=== PATIENT | male | born 1940 | race Caucasian/White ===

== ENCOUNTER → 2017-10-01 | Outpatient (CLI) | payer OTHER ==
[~2017-10-01] MED LIST: AMOCLA875; ASPI81CH; ATEN25 PO; ATOR10 PO; CARV6.25 PO; CYCL10; DARB200I SC; DOXA4; DOXA4 PO; DUTA.5 PO; EZET10 PO; FEBU40TA PO; LEVO750; OMEPRAZOLE MAGN20 MG; PROBIOTIC1 EAC1 PO; SERT100 PO; SEVEC800 PO; Tylenol325 MG PO
== END ==
LOC: LAB 10:53 → LAB SHORT 10:53
DX: M10.9 Gout, unspecified (principal); N18.6 End stage renal disease
CPT/HCPCS: 84550

== ENCOUNTER 2018-07-07 11:55 | Day surgery (SDC) | payer OTHER ==
[~2018-07-07] VITALS: Ht 180.3 cm; Wt 70.0 kg
[~2018-07-07 11:55] MED LIST changes: -ASPI81CH; +ASPI81CH PO; +Acetaminophen325 M1 PO; +DUTA.5; +DUTASTERIDE0.5 MG PO; +ERGO400 PO; +GABA100 PO; +MELA3 PO; +MELATONIN10 M2 PO; +ONDA4ODT MM; +OXYC5 PO; +Prilosec Otc20 MG; +[UNRECOGNIZED DRUG - CODE] PO
--- NOTE | 2018-07-07 16:45 | NUR ---
Patient gave Ja Hernandez permission to particip[ate in care on Jul 07 2018.
--- NOTE | 2018-07-07 18:34 | NUR ---
RECIEVED PT INTO ICU-3 VIA STRETCHER THEN STOOD TO TRANSFERT TO BED. PT IS A/O. VS NOTED AND BP IS SL ELEVATED CURRENTLY. HANDS AND FEET ARE COOL. L FOREARM IS NOTED TO BE SL SWOLLEN FOR LAST FEW HOURS PER RN'S AND "X" MCCAIN THE SITE THAT THE MANAGER GENERATION RN'S INDICATED A HEMATOMA HAD BEEN EXPRESSED FROM. NO HEMATOMA ONLY A SMALL BRUISE REMAINS. PT IS VERY AWARE OF ARM CONDITION. HAS VOIDED AND REQUESTING PO INTAKE. PT VERY PLEASANT AND CHEERFUL. 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 ONLY LIGHT PRESSURE IS REQUESTED PER DR RIVAS ON FISTULA SITES AND PT INDICATES BOTH PUNCTURE SITES ARE TENDER.
--- NOTE | 2018-07-07 20:00 | NUR ---
ASSUMED CARE OF PT. REPORT RECEIVED AT BEDSIDE. FISTULA PROCEDURAL REPAIR SITE EVALUATED AND ASSESSED WITH OFFGOING RN. SOME SWELLING AROUND FISTUAL SITE. GOOD THRILL NOTED AND GOOD DISTAL CMS CHECKS. NO INCREASE IN OOZING PER OFFGOING RN. WILL CONTINUE TO MONITOR SITE. WILL REVIEW CHART AND PLAN OF CARE FOR THIS PT.
--- NOTE | 2018-07-07 20:15 | NUR ---
ASSUMED CARE OF PT AT 1900. REPORT RECEIVED AT BEDSIDE. PT PRESENTS IN BED. ALERT AND ORIENTED. PLEASANT AND COOPERATIVE WITH CARE AND ASSESSMENT. RADIAL ACCESS SITE WITH MINIMAL HEMATOMA NEAR ACCESS SITE. NO CHANGE PER OFFGOING RN. SHADOW DRAINAGE FROM OOZE ON CHG DRESSING. NO CHANGE NOTED WELL. WILL CONTINUE TO MONIOR. WILL REVIEW CHART AND PLAN OF CARE FOR THIS PT.
--- NOTE | 2018-07-08 01:28 | NUR ---
PT CONTINUES TO BE ABLE AND REST. NO CHANGES TO ASSESSMENT OF LEFT ARM FISTULA. NO INCREASE IN SIZE. NO INCREASE IN SHADOW DRAINAGE ON CHG DRESSINGS. WILL CONTINUE TO MONITOR.
--- NOTE | 2018-07-08 07:21 | NUR ---
PT HAS BEEN ABLE TO REST THIS NIGHT. NO COMPLAINTS VOICED BY PT. FISTULA REMAINS TENDER TO PALPATION. PT STATES HE HAS HAD SAME PROCEDURE IN PAST SEVERAL YEARS BACK AND HE HAD SAME TENDERNESS THEN. PT HAS BEEN UP TO TOILET. VOIDS AND HAS SMALL BM. REPORT GIVEN TO SAM BARAKAT.
--- NOTE | 2018-07-08 07:32 | NUR ---
Recieved report from Adithya Torres. Patient was up in room independent using bathroom. He is alert and oriented and is on RA and denies any SOB even with exertion. He has new fistula sites on left arm and clear op sites dressings clear dry and intact, slight swelling. He has Dialysis at 10 and will be discharged by them. VSS. Patient denies any current needs other than wanting to get dressed. He has 20ga IV dressing intact and site WNL's.
--- NOTE | 2018-07-08 08:50 | NUR ---
Patient has RFA IV pulled intact and wrapped in coban. He got dressed independently and tolerated well. He ate 100% of breakfast. He ambulated to exit and PCT walked him to exit, and he has to make [facility] appt. at 1000.He was given written discharge orders supplied from [facility] and he returned understanding of all information.
== END 2018-07-08 08:50 | disposition home or self-care (01) ==
LOC: MHTC 11:55 → ICUE 17:40 → MHTC 07-08 08:50
DX: I77.0 Arteriovenous fistula, acquired (principal); I74.8 Embolism and thrombosis of other arteries; I35.8 Other nonrheumatic aortic valve disorders; I35.0 Nonrheumatic aortic (valve) stenosis
CPT/HCPCS: 36905; 76937; 99152; 99153; C1725; C1757; C1769; C1894; J1644; J2250; J2997; J3010; J7030; J7040; Q9967

== ENCOUNTER 2018-11-15 11:00 | Day surgery (SDC) | payer OTHER ==
[~2018-11-15] VITALS: Ht 170.2 cm; Wt 73.0 kg
[2018-11-15] MEDS ORDERED: PANT40 PO (12:16)
[2018-11-15] MEDS ORDERED: ASPI81CH PO (12:16)
[2018-11-15] MEDS ORDERED: Uloric80 MG PO (12:16)
--- NOTE | 2018-11-15 16:48 | NUR ---
Sutures removed. Entry sites covered with cloth dot [id number] hematoma noted.
[2018-11-15] MEDS ORDERED: XARELTO15 MG PO (17:06)
--- NOTE | 2018-11-15 17:36 | NUR ---
DISCHARGE PT REMAINED A&OX3 AND DENIED ANY PAIN DURING RECOVERY. PT UP TO DRESS SELF AND ABULATE TO RESTROOM WITH STEADY GAIT. IV DC'D WITH TIP IN TACT. DISCHARGE PAPERWORK GONE OVER WITH PT. PT STATED THE UNDERSTANDING OF THE DISCHARGE EDUCATION AND DENIED ANY QUESTIONS AT THIS TIME. PT WHEELED OUT BY THIS NURSE.
== END 2018-11-15 17:30 | disposition home or self-care (01) ==
LOC: MHTC 11:00
DX: I12.0 Hypertensive chronic kidney disease with stage 5 chronic kidney disease or end stage renal disease (principal); N18.6 End stage renal disease; I25.10 Atherosclerotic heart disease of native coronary artery without angina pectoris; F32.9 Major depressive disorder, single episode, unspecified; Z99.2 Dependence on renal dialysis; Z79.899 Other long term (current) drug therapy; Z79.82 Long term (current) use of aspirin
CPT/HCPCS: 99152; 99153; C1725; C1757; C1769; C1887; C1894; J1644; J2250; J3010; J7030; J7040; Q9967

== ENCOUNTER 2019-02-23 06:09 | Day surgery (SDC) | payer OTHER ==
[~2019-02-23] VITALS: Ht 170.2 cm; Wt 73.0 kg
[~2019-02-23 06:09] MED LIST changes: +ALLER-TEC D 5-1 EACH PO; +Aspirin EC81 MG PO; -DUTA.5; +PANT40 PO; +RENAL VITAMIN0.8 MG PO; +Uloric80 MG PO; +XARELTO15 MG PO
--- NOTE | 2019-02-23 10:45 | NUR ---
SUTURES REMOVED. DRESSING CDI-NO HEMATOMA NOTED.
--- NOTE | 2019-02-23 11:06 | NUR ---
SUTURES REMOVED. NO BLEEDING OR HEMOTOMA NOTED. SITES COVERED WITH CLOTH DOT BANDAGES. IV DC'D WITH CATH INTACT. PT DRESSED SELF WITH NO COMPLICATIONS. PT STATES UNDERSTANDING OF SITE CARE INSTRUCTIONS. DENIES ANY QUESTIONS AT THIS TIME. AMBULATES WITH RN UPON DISCHARGE.
== END 2019-02-23 11:45 | disposition home or self-care (01) ==
LOC: MHTC 06:09
DX: T82.868A Thrombosis due to vascular prosthetic devices, implants and grafts, initial encounter (principal); I12.0 Hypertensive chronic kidney disease with stage 5 chronic kidney disease or end stage renal disease; N18.6 End stage renal disease; I25.10 Atherosclerotic heart disease of native coronary artery without angina pectoris; Z95.2 Presence of prosthetic heart valve
CPT/HCPCS: 36905; 76937; 99152; 99153; C1725; C1757; C1769; C1887; C1894; J1644; J2250; J3010; J7030; Q9967

== ENCOUNTER 2019-03-01 14:40 | Inpatient (IN) | payer OTHER ==
[~2019-03-01] VITALS: Ht 180.3 cm; Wt 68.0 kg
[2019-03-01 16:40] LABS: BASOPHILS ABSOLUTE AUTO 0.02 K/mm3 (0.00-0.23); BASOPHILS PERCENT AUTO 0 % (0-2); EOSINOPHILS ABSOLUTE AUTO 0.09 K/mm3 (0.00-0.68); EOSINOPHILS PERCENT AUTO 1 % (0-6); Hematocrit 18.8 % (37.0-53.0); Hemoglobin 6.3 g/dL (13.5-17.5); IMMATURE GRAN ABSOLUTE AUTO 0.03 K/mm3 (0.00-0.10); IMMATURE GRAN PERCENT AUTO 0 % (0-1); LYMPHOCYTES ABSOLUTE AUTO 0.82 K/mm3 (0.84-5.20); LYMPHOCYTES PERCENT AUTO 10 % (21-46); MONOCYTES ABSOLUTE AUTO 0.51 K/mm3 (0.16-1.47); MONOCYTES PERCENT AUTO 6 % (4-13); Mean Corpuscular HGB 35.2 pg (26.0-34.0); Mean Corpuscular HGB Conc 33.5 g/dL (31.5-36.5); Mean Corpuscular Volume 105 fL (80-100); Mean Platelet Volume 10.4 fL (9.1-12.4); NEUTROPHILS PERCENT AUTO 82 % (41-73); Platelet Count 122 K/mm3 (150-400); RDW Coefficient Variation 14.2 % (11.7-14.2); RDW Standard Deviation 53.5 fL (35.1-46.3); Red Blood Cell Count 1.79 M/mm3 (4.30-5.90); White Blood Cell Count 8.07 K/mm3 (4.00-11.30)
[2019-03-01 17:22] LABS: Albumin, Blood 3.6 g/dL (3.4-5.0); Bilirubin, Total 0.6 mg/dL (0.1-1.0); Bun/Creatinine Ratio 14.4 (12.0-20.0); Calcium, Blood 9.7 mg/dL (8.5-10.1); Creatinine, Blood 10.4 mg/dL (0.60-1.20); Globulin, Blood 3.5 g/dL (2.2-4.0); Potassium, Blood 5.5 mmol/L (3.5-5.5); Total Protein, Blood 7.1 g/dL (6.4-8.2)
[2019-03-01 18:40] LABS: Prothrombin Time Results 10.6 Sec (9.7-11.5)
[2019-03-01 19:46] LABS: Magnesium, Blood 2.4 mg/dL (1.6-2.4); Phosphorus, Blood 6.7 mg/dL (2.5-4.9)
--- NOTE | 2019-03-01 22:04 | NUR ---
KEN CALLED TO GET AN UPDATE ON PT. ORDER TO GIVE BLOOD AND TO GIVE DIURETICS DURING PRBC AND AFTER PRBC. VSS. NEW POWERGLIDE PLACED R BASILIC, 20G 10CM.
--- NOTE | 2019-03-01 22:55 | NUR ---
PT TO ICU 13 FROM ED. PT ALERT AND ORIENTED. PT DENIES ABDOMINAL PT AT THIS TIME. PT REPORTS "DARK STOOL" X3 DAYS BUT NO SANDY BLOOD. PT IS ESRD HEMODIALYSIS (WED/WED) PT WHO HAS BEEN UNABLE TO HAVE DIALYSIS SINCE LAST WEDNESDAY D/T PLUGGED FISTULA. PT SCHEDULED TO HAVE TEMP PORT PLACEMENT 03/02 BUT PER PT'S PT WAS DIZZY, WEAK AND HYPOTENSIVE ALL DAY. PT TO RECEIVE 1 UNIT PRBC'S. SEE FULL ADMISSION ASSESSMENT.
--- NOTE | 2019-03-01 23:29 | NUR ---
DR. ROGERS TO SEE PT. PLAN TO PLACE TEMP PORT AND DIALYSIS WITH 1 UNIT PRBC'S TOMORROW PRIOR TO SCOPE FOR GI BLEED.
[2019-03-02 02:14] LABS: Hematocrit 20.6 % (37.0-53.0); Hemoglobin 6.9 g/dL (13.5-17.5)
[2019-03-02 03:04] LABS: Albumin, Blood 3.4 g/dL (3.4-5.0); Anion Gap 16 mmol/L (6-16); Blood Urea Nitrogen 157 mg/dL (8-24); Bun/Creatinine Ratio 14.8 (12.0-20.0); CO2, Blood 17 mmol/L (21-32); Calcium, Blood 9.2 mg/dL (8.5-10.1); Chloride, Blood 109 mmol/L (98-108); Glomerular Filtration Rate 5 (60-); Glucose, Blood 105 mg/dL (70-99); Phosphorus, Blood 7.5 mg/dL (2.5-4.9); Potassium, Blood 5.4 mmol/L (3.5-5.5); Sodium, Blood 142 mmol/L (136-145)
--- NOTE | 2019-03-02 03:17 | NUR ---
PHONE CALL TO DR ROGERS UPDATED ON PT'S H&H. RENAL PANEL ORDERED. ORDER TO INFUSE 1 UNIT PRBC, 4 MG BUMEX MIDWAY, 10 MG ZAROXOLYN MIDWAY.
--- NOTE | 2019-03-02 06:11 | NUR ---
SHIFT SUMMARY NO ACUTE CHANGES OVERNIGHT. PT RECEIVING 2/[address] TIME[address] ROGERS IN TWICE TO SEE PT WITH PLAN TO PLACE TEMP PORT THIS AM AND RESUME DIALYSIS. VSS T/O SHIFT. 55O ML CLEAR YELLOW URINARY OUTPUT. SEE PREVIOUS NOTES FROM THIS SHIFT. WILL REPORT TO DAYSHIFT NURSE.
--- NOTE | 2019-03-02 06:32 | NUR ---
DR. WISDOM CALLED REGARDING PT'S H/H. DR WISDOM TO SCOPE PT THIS AM. CALL TO DR. ROGERS TO CONFIRM THAT SCOPE IS OK TO DO THIS MORNING AND PORT PLACEMENT/DIALYSIS LATER TODAY.
--- NOTE | 2019-03-02 07:37 | NUR ---
PT TRANSPORTED TO CEILING INSTALLER RNs. BLOOD TRANSFUSION COMPLETE. POST TRANSFUSION LAB DRAWS COMPLETED. RIGHT FA IV FLUSHED, PATENT, SL. RIGHT POWERGLIDE FLUSHED, PATENT, SL, RIGHT ANKLE IV COOL, DRY. PT A&O, AWARE OR AM PROCESS FOR CATH, EGD, DIALYSIS, THESE HAVE YET TO BE FULLY COORDINATED. PT ABLE TO VOID.
[2019-03-02 07:39] LABS: BASOPHILS ABSOLUTE AUTO 0.01 K/mm3 (0.00-0.23); BASOPHILS PERCENT AUTO 0 % (0-2); EOSINOPHILS PERCENT AUTO 3 % (0-6); Hematocrit 23.3 % (37.0-53.0); Hemoglobin 7.8 g/dL (13.5-17.5); IMMATURE GRAN ABSOLUTE AUTO 0.03 K/mm3 (0.00-0.10); IMMATURE GRAN PERCENT AUTO 0 % (0-1); LYMPHOCYTES PERCENT AUTO 14 % (21-46); MONOCYTES ABSOLUTE AUTO 0.58 K/mm3 (0.16-1.47); MONOCYTES PERCENT AUTO 8 % (4-13); Mean Corpuscular HGB 32.4 pg (26.0-34.0); Mean Corpuscular HGB Conc 33.5 g/dL (31.5-36.5); Mean Platelet Volume 9.7 fL (9.1-12.4); NEUTROPHILS ABSOLUTE AUTO 5.35 K/mm3 (1.96-9.15); NEUTROPHILS PERCENT AUTO 75 % (41-73); Platelet Count 107 K/mm3 (150-400); RDW Coefficient Variation 17.8 % (11.7-14.2); RDW Standard Deviation 61.3 fL (35.1-46.3); Red Blood Cell Count 2.41 M/mm3 (4.30-5.90); White Blood Cell Count 7.17 K/mm3 (4.00-11.30)
[2019-03-02 07:42] LABS: Mean Corpuscular Volume 97 fL (80-100)
[2019-03-02 08:07] LABS: Magnesium, Blood 2.3 mg/dL (1.6-2.4)
[2019-03-02 08:39] LABS: Albumin, Blood 3.5 g/dL (3.4-5.0); Albumin/Globulin Ratio 1.1 (0.8-1.8); Bilirubin, Total 0.6 mg/dL (0.1-1.0); Calcium, Blood 9.1 mg/dL (8.5-10.1); Globulin, Blood 3.3 g/dL (2.2-4.0); Phosphorus, Blood 7.5 mg/dL (2.5-4.9); Potassium, Blood 5.5 mmol/L (3.5-5.5); Total Protein, Blood 6.8 g/dL (6.4-8.2)
[2019-03-02 08:41] LABS: Bun/Creatinine Ratio 13.9 (12.0-20.0); Creatinine, Blood 10.6 mg/dL (0.60-1.20)
--- NOTE | 2019-03-02 08:51 | NUR ---
PT TRANSPORTED BACK TO ICU VIA CATH RNs. PT DROWSY HOWEVER EASY TO ROUSE AND RESPONDS APPROPRIATELY. IJ CATH PLACED TO RIGHT SIDE, TEMP DRESSING PLACED,SLIGHT OOZING AT INSERTION SITE. PHYSICIAN AT BEDSIDE.
--- NOTE | 2019-03-02 10:06 | NUR ---
PT A&O, ENGAGED IN CONVERSATION, AWARE AND RESPONSIVE, MOVING ALL EXTREMITIES
--- NOTE | 2019-03-02 11:09 | NUR ---
PATINT IN ICU ROOM 13. ADMISSION FOR PROCEDURE STARTED.
--- NOTE | 2019-03-02 11:36 | NUR ---
03/02/19 1136 Darrin Dee Bite Block PlacedHistory, Chart, Medications and Allergies reviewed before start of procedure.LUNGS CLEAR T/O TO AUSCULTATION.MONITOR INTACT WITH CONTINUOUS PULSE OXIMETRY AND INTERMITTENT BP.O2 VIA N/C INTACT THROUGHOUT SEDATION/PROCEDURE.See Anesthesia record.
--- NOTE | 2019-03-02 12:29 | NUR ---
EGD DONE. TIMEOUT 1140, SCOPE OUT 1159, PT AWAKE 1208. PT BP HAS BEEN SOFT, BUT ACCEPTABLE, SEE VITALS. PT AROUSABLE, BUT GROGGY. O2 SATS HOLDING AT 99-100% ON RA. HOWEVER PT TO EMAIN NPO UNTIL MORE ALERT.
--- NOTE | 2019-03-02 15:06 | NUR ---
PROTONIX STOPPED, LINE FLUSHED WITH NS AND SL. HEMODIALYSIS STARTED, PT TOLERATING WELL.
--- NOTE | 2019-03-02 18:22 | NUR ---
PT INCISION SITE ABOVE R DIALYSIS CATH CONT TO OOZ. LOCAL PRESSURE HELD 20 MIN TO STABLIZE AND THEN GIOVANI AGAIN APPLIED AND IS NOT BLEEDING. PT BP SL LOW AND RE CHECKED ON R WRIST X1 AND THEN RETURNED TO L ANKLE. PT IS RESTING WELL AND HAS BEEN VERY A/O THIS DAY.
--- NOTE | 2019-03-02 20:00 | NUR ---
CARE ASSUMED REPORT RECEIVED, CARE ASSUMED FROM SAM BAIRD. PT ALERT, ORIENTED SITTING IN BED. DENIES PAIN/DISCOMFORT/NEEDS. DIALYSIS CATHETER DRESSING IN TACT. VITALS STABLE. SEE FLOWSHEET & ASSESSMENTS.
[2019-03-02 22:20] LABS: Hematocrit 24.4 % (37.0-53.0); Hemoglobin 8.5 g/dL (13.5-17.5)
--- NOTE | 2019-03-03 01:43 | NUR ---
BLOOD PRESSURE PT HYPOTENSIVE, SEE FLOWSHEET. HYPOTENSION UNRESPONSIVE TO MIDODRINE AND FLUID BOLUS. SEE ORDERS. SECOND DOSE OF MIDODRINE GIVEN PER DR. MARINA RECOMMENDATIONS. PER DR. MARINA, CONTINUE TO MONITOR AFTER ADMINISTRATION FOR A GOAL OF MAP 55. PT ASYMPTOMIC. TALKATIVE THROUGHOUT EVENING. DENIES DIZZINESS. RESPIRATIONS EVEN AND UNLABORED. 02 SATS 90S ON ROOM AIR. PT DENIES PAIN/DISCOMFORT. NO SIGNS OF BLEEDING.
--- NOTE | 2019-03-03 02:00 | NUR ---
BLOOD PRESSURE/PERSISTENT LOW BP BP CONINUES TO TREND DOWN. ATTEMPTED TO NOTIFY DR. ROGERS WITH NO ANSWER. NOTIFIED DR. GUNDERSON. NEW ORDER FOR LEVOPHED. PT CONTINUES TO AROUSE EASILY AND IS ORIENTED.
--- NOTE | 2019-03-03 02:12 | NUR ---
DR. ROGERS COMMUNICATION RECEIVED RETURN PHONE CALL FROM DR. ROGERS. UPDATED ON CHANGES TO PLAN OF CARE, DR. ROGERS AGREEABLE TO PLAN.
[2019-03-03 03:26] LABS: Hematocrit 23.5 % (37.0-53.0)
[2019-03-03 03:42] LABS: Albumin, Blood 3.1 g/dL (3.4-5.0); Anion Gap 10 mmol/L (6-16); Blood Urea Nitrogen 78 mg/dL (8-24); Bun/Creatinine Ratio 12.3 (12.0-20.0); CO2, Blood 28 mmol/L (21-32); Calcium, Blood 9.1 mg/dL (8.5-10.1); Chloride, Blood 107 mmol/L (98-108); Creatinine, Blood 6.35 mg/dL (0.60-1.20); Glomerular Filtration Rate 9 (60-); Glucose, Blood 117 mg/dL (70-99); Potassium, Blood 4.3 mmol/L (3.5-5.5); Sodium, Blood 145 mmol/L (136-145)
[2019-03-03 03:54] LABS: Phosphorus, Blood 4.1 mg/dL (2.5-4.9)
--- NOTE | 2019-03-03 05:59 | NUR ---
SUMMARY SINCE PREVIOUS NOTE, LEVOPHED TITRATED TO MAINTAIN BLOOD PRESSURE. INFUSING THROUGH POWERGLIDE. SEE FLOWSHEETS. PT CONTINUES TO AROUSE EASILY AND IS TALKATIVE WHEN STAFF IS IN THE ROOM WITH HIM. DIALYSIS CATHETER SITE ASSESSMENT UNCHANGED. PT HAS CONTINUED TO DENY PAIN. DR. ROGERS UPDATED ON MOST RECENT LABS BY [facility] RN AND NEW ORDERS PLACED. PT CALLS APPROPRIATELY FOR NEEDS.
--- NOTE | 2019-03-03 07:03 | NUR ---
REPORT TO SAM BAIRD TO ASSUME CARE. BEDSIDE ROUNDING COMPLETE.
--- NOTE | 2019-03-03 12:47 | NUR ---
REASSESSMENT: PT REMAINS INTUBATED, ON PRECEDEX, BUT STILL OPENS HIS EYES AND FOLLOWS COMMANDS. PT HAS HAD 2 LOOSE BMS THIS MORNING. HE IS HELPING TURN A LITTLE BITH WHEN HE GETS CLEANED UP. TF ARE CURRENTLY STOPPED D/T LIKELY EXTUBATION, BUT PT HAS BEEN TOLERATING THEM. LUNGS ARE COARSE T/O. MOD AMT OF SECRETIONS, THICK WHITE, BUT THINNER THAN THEY WERE EARLIER THIS WEEK. DR. BARKSDALE EVALUATED PT AND PLANS FOR EXTUBATION THIS AFTERNOON. PT IS SR, SBP IN THE 160-170S. PT RECEIVED DOSE OF LASIX THIS MORNING PER DR. BARKSDALE. PT'S IS AT THE BEDSIDE AND HAS BEEN FULLY UPDATED.
--- NOTE | 2019-03-03 14:18 | NUR ---
REASSESSMENT: PT HAS BEEN RESTING IN BED FOR MOST OF THE MORNING. HE GOT UP TO THE BR ONCE AND REQUIRED MINIMAL ASSISTANCE. LEVOPHED WAS TITRATED OFF, BUT PT'S BP HAS BEEN BORDERLINE D/T LOW DIASTOLIC. PT IS ASYMPTOMATIC. DR. SAUNDERS AWARE OF BP. PT HAD HIS ECHO THIS AM. NO DIALYSIS TODAY SO 1 UNIT PRBC GIVEN PERIPHERALLY. PT'S AT THE BEDSIDE AND HAS BEEN FULLY UPDATED.
--- NOTE | 2019-03-03 18:18 | NUR ---
PT ON LEVOPHED THIS AM. WAS TITRATED OFF WITH SOFT BPS. PT ASYMPTOMATIC. UP TO TOILET THREE TIMES TODAY WITH DARKISH BMS. ABLE TO AMBULATE WITH MINIMAL ASSISTANCE. NO DIZZINESS WITH RISING. 1 UNIT PRBCS TRANSFUSED. PT TOLERATED WELL. FULL LIQUID DIET AT BEGINNING OF SHIFT, HOWEVER DIET CHANGED TO RENAL DIET 1744. AT BEDSIDE MAJORITY OF DAY.
--- NOTE | 2019-03-03 21:25 | NUR ---
ASSUMED PT CARE FROM SAM MCKNIGHT PT SITTING UP IN BED. ALERT AND ORIENTED AND ABLE TO MAKE NEEDS KNOWN. STAND BY ASSIST TO TOILET. PT DENIES ANY ABDOMINAL PAIN OR BLOODY OR BLACK/TARRY STOOLS. FREQUENT USE OF TOILET PER REPORT. HYPERACTIVE BOWEL TONES TO ALL FOUR QUADRANTS. LEFT FOREARM FISTULA REMAINS NEGATIVE FOR BRUIT/THRILL. PERMACATH TO RIGHT UPPER CHEST HAS DRESSING THAT IS CDI; LAST DIALYSIS WAS 03/02 S/P PERMACATH PLACEMENT. POWERGLIDE TO RIGHT UPPER ARM IS PATENT, BUT SALINE LOCKED. 18G TO RIGHT ANKLE IS ALSO PATENT AND SL. PT IS NOTED TO BE 100& VENTRICULAR PACED WITH HR 60-70'S. BLOOD PRESSURE STABLE. CALL LIGHT LEFT WITHIN REACH AND PT IS ABLE TO MAKE HIS NEEDS KNOWN. APPEARS TO BE IN GOOD SPIRITS.
[2019-03-04 04:31] LABS: Albumin, Blood 3.4 g/dL (3.4-5.0); Anion Gap 9 mmol/L (6-16); Blood Urea Nitrogen 83 mg/dL (8-24); Bun/Creatinine Ratio 11.3 (12.0-20.0); CO2, Blood 26 mmol/L (21-32); Calcium, Blood 9.4 mg/dL (8.5-10.1); Chloride, Blood 107 mmol/L (98-108); Creatinine, Blood 7.36 mg/dL (0.60-1.20); Glomerular Filtration Rate 8 (60-); Glucose, Blood 101 mg/dL (70-99); Magnesium, Blood 2.1 mg/dL (1.6-2.4); Phosphorus, Blood 4.6 mg/dL (2.5-4.9); Potassium, Blood 4.5 mmol/L (3.5-5.5); Sodium, Blood 142 mmol/L (136-145)
--- NOTE | 2019-03-04 06:05 | NUR ---
END OF SHIFT SUMMARY PT HAS SLEPT MOST OF THE NIGHT. VS REMAIN STABLE WITH OCCASIONAL LOW DIASTOLIC PRESSURES; HOWEVER, PT DENIES SOB, FEELING DIZZY OR FEELING LIGHT HEADED, WELL DENIES ANY CHEST PAIN. PERMACATH TO RIGHT UPPER CHEST REMAINS WITH DRESSING IN PLACE THAT IS CDI. LUNG SOUNDS REMAIN CLEAR T/O. PT HAS BEEN 100% VENTRICULAR PACED WITH OCCASIONAL ATRIAL PACING NOTED; HR 60'S. ABDOMEN REMAINS SOFT, NON-TENDER WITH ACTIVE BTX4. DENIES ANY ABDOMINAL PAIN, WELL N/V. UP TO THE RESTROOM FREQUENTLY FOR ELIMINATION; VOIDING, AND HAVING BM'S. PT DENIES DIARRHEA, BUT CONTINUED FLUSHING TOILET BEFORE I COULD ASSESS STOOL. CALL LIGHT LEFT WITHIN REACH AND PT IS ABLE TO MAKE HIS NEEDS KNOWN. WILL CONTINUE TO MONITOR UNTIL REPORT IS HANDED OFF TO ONCOMING RN.
--- NOTE | 2019-03-04 08:00 | NUR ---
ASSUMED CARE PT. ALERT AND ORIENTED THIS AM, INDEPENDENT IN ROOM. DENIES PAIN. VSS. PLANS FOR DIALYSIS TODAY. STATUS CHANGED TO PCU. CALL LIGHT IN REACH, BED IN LOW POSITION.
--- NOTE | 2019-03-04 09:22 | NUR ---
DIALYSIS NURSE AT BEDSIDE.
--- NOTE | 2019-03-04 11:59 | NUR ---
CALL TO SALVAGE ENGINEER FOR REPORT
--- NOTE | 2019-03-04 12:27 | NUR ---
DIALYSIS PT'S LABS GOOD. DR. BARKSDALE SAID I NEEDED TO DC TX AND START AN EMERGANCY PT. CALLED DR ROGERS. DC'ED TX. SET UP MACHINE AND STARTED OTHER ICU PT.
--- NOTE | 2019-03-04 12:38 | NUR ---
TRANSFER: REPORT RECIEVED FROM AUTOMOTIVE TEACHERSAM FRIEDMAN. PT TO UNIT AT ABOUT 1150. UPON ASSESSMENT PT IS A/O, VSS. HELPED PT TO RESTROOM, 1 ASSIST. WILL CTM PT STATUS. PT UP IN CHAIR AT THIS TIME FOR LUNCH
--- NOTE | 2019-03-04 17:55 | NUR ---
SUMMARY: NO CHANGE SINCE PT TRANSFER. PT IS A/O, VSS, ABLE TO AMBULATE IN HALLS, SBA. NO REPORT OF DARK STOOL, OR ACTIVE BLEED. TELE WNL. PLAN IS TO DC TOMORROW. NO SAFETY CONCERNS AT THIS TIME. PT FAMILY AT BEDSIDE
[2019-03-05 03:43] LABS: Hematocrit 27.7 % (37.0-53.0); Hemoglobin 9.3 g/dL (13.5-17.5)
[2019-03-05 04:03] LABS: Albumin, Blood 3.4 g/dL (3.4-5.0); Anion Gap 9 mmol/L (6-16); Blood Urea Nitrogen 66 mg/dL (8-24); Bun/Creatinine Ratio 10.1 (12.0-20.0); CO2, Blood 27 mmol/L (21-32); Calcium, Blood 8.9 mg/dL (8.5-10.1); Chloride, Blood 102 mmol/L (98-108); Creatinine, Blood 6.55 mg/dL (0.60-1.20); Glomerular Filtration Rate 9 (60-); Glucose, Blood 107 mg/dL (70-99); Phosphorus, Blood 4.5 mg/dL (2.5-4.9); Potassium, Blood 4.2 mmol/L (3.5-5.5); Sodium, Blood 138 mmol/L (136-145)
--- NOTE | 2019-03-05 05:28 | NUR ---
END OF SHIFT SUMMARY PT ALERT AND ORIENTED. VERY PLEASANT AND COOPERATIVE WITH CARE. PT HAS BEEN UPO TO BATHROOM A FEW TIMES THIS SHIFT. NO BM. NO ACUTE CHANGES. VSS. PT HAS BEEN RESTING QUIETLY IN ROOM THROUGH MAJORITY OF SHIFT. DID TAKE A WALK AROUND THE UNIT TO "STRETCH HIS LEGS". OTHERWISE, PT HAS BEEN IN ROOM. USES CALL LIGHT APPROPRIATELY. CALL LIGHT WITHIN REACH. WILL CONTINUE TO MONITOPR PT UNTIL SHIFT CHANGE.
[2019-03-05] MEDS ORDERED: Midodrine HCl10 MG PO (11:25)
--- NOTE | 2019-03-05 12:23 | NUR ---
UDATE PT ALERT AND ORIENTED. VS STABLE. ORDERS FOR DISCHARGE THIS AM. DISCHARGE INSTRUCTIONS PROVIDED. NEW MEDICATIONS EDUCATED TO PATIENT AND . ALL QUESTIONS ANSWERED. PT TAKEN OUT BY WHEELCHAIR.
== END 2019-03-05 12:18 | disposition home or self-care (01) | DRG 673 ==
LOC: ER 14:40 → ICUW 19:07 → PCU 03-04 11:53
PROVIDERS: Emergency Medicine; Internal Medicine Nephrology; Nurse Practitioner Acute Care; Physician Assistant; ADMIT Internal Medicine
PROC: 30233N1 Transfusion of Nonautologous Red Blood Cells into Peripheral Vein, Percutaneous Approach (ICD-10-PCS; 2019-03-01)
PROC: 0DD68ZX Extraction of Stomach, Via Natural or Artificial Opening Endoscopic, Diagnostic (ICD-10-PCS; 2019-03-02)
PROC: 0JH63XZ Insertion of Tunneled Vascular Access Device into Chest Subcutaneous Tissue and Fascia, Percutaneous Approach (ICD-10-PCS; principal; 2019-03-03)
PROC: 02HV33Z Insertion of Infusion Device into Superior Vena Cava, Percutaneous Approach (ICD-10-PCS; 2019-03-03)
PROC: B5181ZA Fluoroscopy of Superior Vena Cava using Low Osmolar Contrast, Guidance (ICD-10-PCS; 2019-03-03)
DX: N17.9 Acute kidney failure, unspecified (principal); K29.61 Other gastritis with bleeding; D62 Acute posthemorrhagic anemia; E87.2 Acidosis; Z79.82 Long term (current) use of aspirin; N18.6 End stage renal disease; N25.81 Secondary hyperparathyroidism of renal origin; F32.9 Major depressive disorder, single episode, unspecified; M10.9 Gout, unspecified; G47.33 Obstructive sleep apnea (adult) (pediatric); I25.10 Atherosclerotic heart disease of native coronary artery without angina pectoris; Z95.0 Presence of cardiac pacemaker; Z99.2 Dependence on renal dialysis; Z95.2 Presence of prosthetic heart valve; N40.0 Benign prostatic hyperplasia without lower urinary tract symptoms; E78.5 Hyperlipidemia, unspecified; E87.5 Hyperkalemia; D63.1 Anemia in chronic kidney disease; I95.9 Hypotension, unspecified; E83.39 Other disorders of phosphorus metabolism; I12.9 Hypertensive chronic kidney disease with stage 1 through stage 4 chronic kidney disease, or unspecified chronic kidney disease
CPT/HCPCS: 36415; 36430; 36558; 71045; 76937; 80053; 80069; 82272; 83735; 84100; 85014; 85018; 85025; 85610; 85730; 86850; 86900; 86901; 86923; 87081; 88305; 88312; 93005; 93010; 93306; 96365; 96368; 96376; 99152; 99153; 99285-25; C1750; C1751; C1769; C9113; J0881; J1644; J2250; J2354; J2370; J2704; J3010; J7030; J7040; J7050; J7060; P9016

== ENCOUNTER 2019-07-04 07:30 | Day surgery (SDC) | payer OTHER ==
[~2019-07-04 07:30] MED LIST changes: +Midodrine HCl10 MG PO
== END 2019-07-04 22:46 | disposition home or self-care (01) ==
LOC: WOUND 07:30
DX: S61.201A Unspecified open wound of left index finger without damage to nail, initial encounter (principal); I12.0 Hypertensive chronic kidney disease with stage 5 chronic kidney disease or end stage renal disease; N18.6 End stage renal disease; I35.0 Nonrheumatic aortic (valve) stenosis; I25.10 Atherosclerotic heart disease of native coronary artery without angina pectoris; F32.9 Major depressive disorder, single episode, unspecified; G47.30 Sleep apnea, unspecified; M34.9 Systemic sclerosis, unspecified; Z79.899 Other long term (current) drug therapy; Z95.2 Presence of prosthetic heart valve; Z95.0 Presence of cardiac pacemaker; Z99.2 Dependence on renal dialysis; Z91.048 Other nonmedicinal substance allergy status; X58.XXXA Exposure to other specified factors, initial encounter
CPT/HCPCS: G0463

== ENCOUNTER 2019-07-11 00:12 | Day surgery (SDC) | payer OTHER | END 2019-07-11 23:04 | disposition home or self-care (01) | LOC: WOUND 00:12 | DX: S61.203A Unspecified open wound of left middle finger without damage to nail, initial encounter (principal); I73.9 Peripheral vascular disease, unspecified; I12.0 Hypertensive chronic kidney disease with stage 5 chronic kidney disease or end stage renal disease; N18.6 End stage renal disease; G47.30 Sleep apnea, unspecified; I35.0 Nonrheumatic aortic (valve) stenosis; I25.10 Atherosclerotic heart disease of native coronary artery without angina pectoris; M34.9 Systemic sclerosis, unspecified; F32.9 Major depressive disorder, single episode, unspecified; Z95.0 Presence of cardiac pacemaker; Z99.2 Dependence on renal dialysis; Z95.2 Presence of prosthetic heart valve; Z79.899 Other long term (current) drug therapy; Z91.048 Other nonmedicinal substance allergy status; X58.XXXA Exposure to other specified factors, initial encounter ==

== ENCOUNTER 2019-07-18 00:17 | Day surgery (SDC) | payer OTHER | END 2019-07-18 22:48 | disposition home or self-care (01) | LOC: WOUND 00:17 | DX: S61.203D Unspecified open wound of left middle finger without damage to nail, subsequent encounter (principal); I12.9 Hypertensive chronic kidney disease with stage 1 through stage 4 chronic kidney disease, or unspecified chronic kidney disease; N18.9 Chronic kidney disease, unspecified; F32.9 Major depressive disorder, single episode, unspecified; I25.10 Atherosclerotic heart disease of native coronary artery without angina pectoris; Z99.2 Dependence on renal dialysis; Z79.899 Other long term (current) drug therapy ==

== ENCOUNTER 2019-07-25 00:12 | Day surgery (SDC) | payer OTHER | END 2019-07-25 23:02 | disposition home or self-care (01) | LOC: WOUND 00:12 | DX: S61.203D Unspecified open wound of left middle finger without damage to nail, subsequent encounter (principal); I12.9 Hypertensive chronic kidney disease with stage 1 through stage 4 chronic kidney disease, or unspecified chronic kidney disease; N18.9 Chronic kidney disease, unspecified; F32.9 Major depressive disorder, single episode, unspecified; I25.10 Atherosclerotic heart disease of native coronary artery without angina pectoris; Z99.2 Dependence on renal dialysis; Z95.2 Presence of prosthetic heart valve; Z95.0 Presence of cardiac pacemaker; Z79.899 Other long term (current) drug therapy | CPT/HCPCS: G0463 ==

== ENCOUNTER 2019-08-08 00:12 | Day surgery (SDC) | payer OTHER | END 2019-08-08 23:04 | disposition home or self-care (01) | LOC: WOUND 00:12 | DX: S61.203D Unspecified open wound of left middle finger without damage to nail, subsequent encounter (principal); I12.9 Hypertensive chronic kidney disease with stage 1 through stage 4 chronic kidney disease, or unspecified chronic kidney disease; N18.9 Chronic kidney disease, unspecified; F32.9 Major depressive disorder, single episode, unspecified; Z99.2 Dependence on renal dialysis; Z79.899 Other long term (current) drug therapy | CPT/HCPCS: G0463 ==

== ENCOUNTER 2020-04-12 08:58 | Day surgery (SDC) | payer OTHER ==
[~2020-04-12] VITALS: Ht 185.4 cm; Wt 64.8 kg
== END 2020-04-12 11:32 | disposition home or self-care (01) ==
LOC: ORSCSDS 08:58
PROVIDERS: Internal Medicine Gastroenterology
PROC: 0DB58ZX Excision of Esophagus, Via Natural or Artificial Opening Endoscopic, Diagnostic (ICD-10-PCS; principal; 2020-04-12 10:15)
PROC: 0DB68ZX Excision of Stomach, Via Natural or Artificial Opening Endoscopic, Diagnostic (ICD-10-PCS; principal; 2020-04-12 10:15)
PROC: 0DBK8ZX Excision of Ascending Colon, Via Natural or Artificial Opening Endoscopic, Diagnostic (ICD-10-PCS; principal; 2020-04-12 10:15)
PROC: 0DBM8ZX Excision of Descending Colon, Via Natural or Artificial Opening Endoscopic, Diagnostic (ICD-10-PCS; principal; 2020-04-12 10:15)
PROC: 0DBN8ZX Excision of Sigmoid Colon, Via Natural or Artificial Opening Endoscopic, Diagnostic (ICD-10-PCS; principal; 2020-04-12 10:15)
PROC: 0D758ZZ Dilation of Esophagus, Via Natural or Artificial Opening Endoscopic (ICD-10-PCS; principal; 2020-04-12 10:15)
DX: R13.14 Dysphagia, pharyngoesophageal phase (principal); K21.9 Gastro-esophageal reflux disease without esophagitis; K44.9 Diaphragmatic hernia without obstruction or gangrene; K22.10 Ulcer of esophagus without bleeding; K22.2 Esophageal obstruction; K29.60 Other gastritis without bleeding; K29.80 Duodenitis without bleeding; D12.2 Benign neoplasm of ascending colon; D12.4 Benign neoplasm of descending colon; K57.30 Diverticulosis of large intestine without perforation or abscess without bleeding; Z12.11 Encounter for screening for malignant neoplasm of colon; Z86.010 Personal history of colon polyps; G47.33 Obstructive sleep apnea (adult) (pediatric); N18.6 End stage renal disease; Z99.2 Dependence on renal dialysis; Z79.82 Long term (current) use of aspirin; Z79.899 Other long term (current) drug therapy
CPT/HCPCS: 87081; 88305; 88342; J2704; J7030; J7120

== ENCOUNTER 2020-07-31 07:36 | Day surgery (SDC) | payer OTHER ==
[2020-07-31] MEDS ORDERED: ACET500 (09:00)
[2020-07-31] MEDS ORDERED: AMPHOJEL (09:00)
[2020-07-31] MEDS ORDERED: CINA30 PO (09:01)
[2020-07-31] MEDS ORDERED: OMEP20ER PO (09:01)
[2020-07-31] MEDS ORDERED: METO5A PO (09:02)
[2020-07-31] MEDS ORDERED: ONDA4 PO (09:03)
[2020-07-31] MEDS ORDERED: SERT100 PO (09:03)
[2020-07-31] MEDS ORDERED: Rena-Vite Tabl0.8 MG PO (09:03)
== END 2020-07-31 12:50 | disposition home or self-care (01) ==
LOC: ATC 07:36
DX: N18.6 End stage renal disease (principal); D63.1 Anemia in chronic kidney disease; E46 Unspecified protein-calorie malnutrition; N25.81 Secondary hyperparathyroidism of renal origin; M10.9 Gout, unspecified; Z99.2 Dependence on renal dialysis
CPT/HCPCS: 36415; 36430; 86850; 86900; 86901; 86923; J7050; P9016

== ENCOUNTER 2021-01-28 11:28 | Day surgery (SDC) | payer OTHER ==
[~2021-01-28 11:28] MED LIST changes: +ACET500; +AMPHOJEL; +CINA30 PO; +METO5A PO; +OMEP20ER PO; +ONDA4 PO; +Rena-Vite Tabl0.8 MG PO
== END 2021-01-28 22:52 | disposition home or self-care (01) ==
LOC: WOUND 11:28
DX: S61.203A Unspecified open wound of left middle finger without damage to nail, initial encounter (principal); X58.XXXA Exposure to other specified factors, initial encounter
CPT/HCPCS: G0463

== ENCOUNTER 2021-02-10 16:34 | Emergency (ER) | payer OTHER ==
[~2021-02-10] VITALS: Ht 180.3 cm; Wt 68.0 kg
[2021-02-10 17:02] LABS: BASOPHILS ABSOLUTE AUTO 0.02 K/mm3 (0.00-0.23); BASOPHILS PERCENT AUTO 0 % (0-2); EOSINOPHILS ABSOLUTE AUTO 0.02 K/mm3 (0.00-0.68); EOSINOPHILS PERCENT AUTO 0 % (0-6); Hemoglobin 8.1 g/dL (13.5-17.5); IMMATURE GRAN ABSOLUTE AUTO 0.02 K/mm3 (0.00-0.10); IMMATURE GRAN PERCENT AUTO 0 % (0-1); LYMPHOCYTES ABSOLUTE AUTO 1.17 K/mm3 (0.84-5.20); LYMPHOCYTES PERCENT AUTO 17 % (21-46); MONOCYTES ABSOLUTE AUTO 1.03 K/mm3 (0.16-1.47); MONOCYTES PERCENT AUTO 15 % (4-13); Mean Corpuscular HGB 34.2 pg (26.0-34.0); Mean Corpuscular HGB Conc 35.2 g/dL (31.5-36.5); Mean Corpuscular Volume 97 fL (80-100); Mean Platelet Volume 9.7 fL (9.1-12.4); NEUTROPHILS ABSOLUTE AUTO 4.84 K/mm3 (1.96-9.15); NEUTROPHILS PERCENT AUTO 68 % (41-73); Platelet Count 137 K/mm3 (150-400); RDW Coefficient Variation 14.5 % (11.7-14.2); RDW Standard Deviation 50.5 fL (35.1-46.3); Red Blood Cell Count 2.37 M/mm3 (4.30-5.90)
[2021-02-10 17:13] LABS: Albumin, Blood 3.4 g/dL (3.4-5.0); Albumin/Globulin Ratio 0.9 (0.8-1.8); Bilirubin, Total 0.5 mg/dL (0.1-1.0); Bun/Creatinine Ratio 6.4 (12.0-20.0); Calcium, Blood 9.4 mg/dL (8.5-10.1); Creatinine, Blood 5.94 mg/dL (0.60-1.20); Globulin, Blood 3.9 g/dL (2.2-4.0); Potassium, Blood 4.1 mmol/L (3.5-5.5); Total Protein, Blood 7.3 g/dL (6.4-8.2)
== END 2021-02-10 19:30 | disposition home or self-care (01) ==
LOC: ER 16:34
PROVIDERS: Student in an Organized Health Care Education/Training Program
DX: R55 Syncope and collapse (principal); N18.6 End stage renal disease; I34.8 Other nonrheumatic mitral valve disorders; F32.9 Major depressive disorder, single episode, unspecified; Z99.2 Dependence on renal dialysis; Z95.0 Presence of cardiac pacemaker
CPT/HCPCS: 80053; 85025; 93005; 93010; 99285-25

== ENCOUNTER 2021-06-02 15:50 | Emergency (ER) | payer OTHER ==
[~2021-06-02] VITALS: Ht 177.8 cm; Wt 68.0 kg
== END 2021-06-02 18:38 ==
LOC: ER 15:50
DX: I46.9 Cardiac arrest, cause unspecified (principal); Z88.8 Allergy status to other drugs, medicaments and biological substances; Z79.899 Other long term (current) drug therapy; I25.10 Atherosclerotic heart disease of native coronary artery without angina pectoris; N18.6 End stage renal disease; G47.33 Obstructive sleep apnea (adult) (pediatric); D64.9 Anemia, unspecified; K21.9 Gastro-esophageal reflux disease without esophagitis; E78.00 Pure hypercholesterolemia, unspecified
CPT/HCPCS: 92950; 99285